=== PATIENT | male | born 1965 | race Caucasian/White ===

== ENCOUNTER → 2019-02-09 | Outpatient (CLI) | payer OTHER, SELFPAY ==
[2019-02-03 15:06] VITALS: BMI 30.9
[2019-02-09 16:59] LABS: ALB/GLOB Ratio 1.1 RATIO (0.9-2.4); AST(SGOT) 23 U/L (15-37); Alanine Aminotransfer ALT/SGPT 29 U/L (16-61); Albumin, Serum 3.8 g/dL (3.2-5.0); Alkaline Phosphatase 100 U/L (45-117); Anion Gap 5 (5-15); BUN 15 mg/dL (7-18); BUN/Creat Ratio 14.7 RATIO (10-20); Calcium,Total 8.5 mg/dL (8.5-10.1); Chloride 104 mmol/L (98-107); Cholesterol 230 mg/dL (200); Creatinine, Serum 1.02 mg/dL (0.70-1.30); EST Glomerular Filtration Rate 82 mL/min (>60); Est Glom Filt Rate - Afr Amer 99 mL/min (>60); Globulin 3.5 g/dL (2.2-4.2); Glucose 88 mg/dL (74-106); High Density Lipoprotein 51 mg/dL; Potassium 3.8 mmol/L (3.5-5.1); Protein, Total 7.3 g/dL (6.4-8.2); Sodium Level 139 mmol/L (136-145); Triglycerides 178 mg/dL; Very Low Density Lipoprotein 36 mg/dL (5-40)
== END | disposition home or self-care (01) ==
LOC: LAB 15:53
PROVIDERS: Family Provider Family Medicine; PCP Family Medicine; Referring Provider Family Medicine; Visit Provider Family Medicine
DX: E78.5 Hyperlipidemia, unspecified (principal)
CPT/HCPCS: 36415; 80053; 80061

== ENCOUNTER → 2020-05-31 15:13 | Outpatient (CLI) | payer OTHER, SELFPAY ==
[2020-05-30 15:47] VITALS: BMI 31.2
[2020-05-31 18:31] LABS: ALB/GLOB Ratio 1.1 RATIO (0.9-2.4); AST(SGOT) 23 U/L (15-37); Alanine Aminotransfer ALT/SGPT 30 U/L (16-61); Albumin, Serum 4.1 g/dL (3.2-5.0); Alkaline Phosphatase 80 U/L (45-117); Anion Gap 6 (5-15); BUN 11 mg/dL (7-18); BUN/Creat Ratio 9.8 RATIO (10-20); Calcium,Total 8.8 mg/dL (8.5-10.1); Chloride 102 mmol/L (98-107); Cholesterol 250 mg/dL (200); Creatinine, Serum 1.12 mg/dL (0.70-1.30); EST Glomerular Filtration Rate 73 mL/min (>60); Est Glom Filt Rate - Afr Amer 88 mL/min (>60); Globulin 3.6 g/dL (2.2-4.2); Glucose 69 mg/dL (74-106); High Density Lipoprotein 56 mg/dL; Potassium 3.8 mmol/L (3.5-5.1); Protein, Total 7.7 g/dL (6.4-8.2); Sodium Level 136 mmol/L (136-145); Triglycerides 96 mg/dL; Very Low Density Lipoprotein 19 mg/dL (5-40)
== END ==
PROVIDERS: PCP Family Medicine; Visit Provider Family Medicine
DX: R42 Dizziness and giddiness (principal)
CPT/HCPCS: 36415; 80053; 80061

== ENCOUNTER → 2020-06-14 17:42 | Outpatient (CLI) | payer OTHER, SELFPAY ==
[2020-05-30 15:47] VITALS: BMI 31.2
--- NOTE | 2020-06-14 17:48 | MRI_ITS ---
STUDY: MRI BRAIN WITH AND WITHOUT CONTRAST REASON FOR EXAM: Male, 54 years old. INTERMITTENT vertigo WITH VOMITTING TECHNIQUE: Standardized multiplanar fat and water weighted pulse sequences were obtained. IV 19 cc dotarem was administered for the contrast portion of the examination. COMPARISON: None. FINDINGS: Normal size of the ventricles and extra-axial spaces for the patient''s age. Minor periventricular white matter ischemic change without mass effect or restricted diffusion.. Normal bilateral basal ganglia. Normal thalami. There is no extra-axial fluid accumulation. Normal flow voids within the major intracranial circulation suggesting patency by spin echo criteria. Normal venous enhancement. There is no enhancing intra-axial or extra-axial abnormality. Normal sella turcica, pituitary gland, infundibular stalk, optic chiasm and hypothalamus. Normal tectal plate and pineal gland. Normal midbrain, faith and medulla. Normal cerebellum. Normal basal cisterns. Normal bilateral temporal bones. Normal bilateral internal auditory canals. No demonstrated orbital abnormality, within the constraints of a routine brain study. Normal visualized paranasal sinuses. Normal calvarium and skull base. Normal visualized soft tissue structures. Normal visualized upper cervical spine. MRI/Brain W/WO Contrast IMPRESSION: Minor periventricular white matter ischemic change without evidence for acute infarct. No enhancing lesions. No evidence for acoustic or vestibular schwannoma Electronically Signed: Gaston Nicholson MD at 19:32 EST , Service support ,
== END ==
PROVIDERS: PCP Family Medicine; Referring Provider Family Medicine; Visit Provider Family Medicine
DX: R42 Dizziness and giddiness (principal)
CPT/HCPCS: 70553; A9575

== ENCOUNTER → 2020-09-06 09:26 | Outpatient (CLI) | payer OTHER, SELFPAY ==
[2020-05-30 15:47] VITALS: BMI 31.2
[2020-09-06 12:42] LABS: Cholesterol 232 mg/dL (200); High Density Lipoprotein 55 mg/dL; Triglycerides 95 mg/dL; Very Low Density Lipoprotein 19 mg/dL (5-40)
== END ==
PROVIDERS: PCP Family Medicine; Referring Provider Family Medicine; Visit Provider Family Medicine
DX: E78.5 Hyperlipidemia, unspecified (principal)
CPT/HCPCS: 36415; 80061

== ENCOUNTER 2020-10-31 15:51 | Outpatient (RCR) | payer OTHER, SELFPAY ==
[2020-10-25 08:07] VITALS: BMI 30.4
--- NOTE | 2020-11-15 09:40 | HP.PTEVAL_ITS ---
Patient's Visit Information SHIVANI AIKEN is a 55 year old M referred to Physical Therapy by SEAN Vera with a diagnosis of R shoulder pain. Date of Evaluation: 10/31/20 Physical Therapist: Ricky Coreas DPT - Visit Plan Frequency: 1x/Week Duration: 6 Weeks Plan: Start with shoulder ROM (pass through stretching), progress RTC strengthening and periscapular strengthening in multiple planes as tolerated. Pt. to trial exercises on own at this point in time and follow up with PT in 2-3 weeks if needed. - Subjective Pt. is here today for his initial evaluation with diagnosis of R shoulder pain. Pt. reports having some mild issues for ~5 years, but has become worse recently. He reports difficulty sleeping and increased popping in his shoulder when raising it above 90deg. Along with this popping and reaching over head is painful. 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 Pt. also would like to be able to throw with his kids as they like playing baseball and football. He reports having a lot of pain and substitution patterns with any throwing. He tries to avoid throwing due to pain. He would like to reduce symptoms in order to throw, lift over head and get back to all recreational activities without limitations. He denies any neck pain and no radiating pain going down his arm. - Pain R shoulder Pain Intensity (Out of 10): 1 Pain Intensity Range: 0, 6 - Objective POSTURE: Pt. has slight FH posture, with slight rounded shoulders bilaterally, but able to correct with VC/TCing. Pt. is fairly muscular as well. PALPATION: Pt. has increased pain with palpation of anterior aspect of sub acromial space and along long bicipital groove. No pain in neck or scapular musculature. NEURO: Normal sensation and normal DTR of B biceps and triceps tendons. ROM: L shoulder- full without increase in pain with over pressure in all directions. R shoulder: Pt. has full motion of R shoulder, but has increased pain at ~140deg of flexion and abduction. Minimal pain with functional ER/IR motions. MMT: Pt. has decent strength throughout R deltoid (5/5). R RTC: ER 4+/5 mild increase NW, IR 5/5 NE. Periscapular musculature: rhomboid 4/5, mid trap 4+/5, lower trap 4+/5. SPECIAL TESTING: horn blowers +, biceps load -. - Special Tests R Shoulder Empty Can - SS: Negative R Shoulder Belly Press - SupScap: Negative R Shoulder Neer - Impingement: Positive R Shoulder Winters Joseluis - Impingement: Positive R Shoulder Biceps Load Test - Labrum: Negative R Shoulder Speeds Test - Labrum/Biceps: Negative - Goals Goal 1:: LTG: Pt. to be I with HEP. Goal Time Frame: 4-6 Weeks Goal 2:: STG: Pt. to sleep throughout the night without increase in symptoms. Goal Time Frame: 2-4 Weeks Goal 3:: LTG: Pt. to have full ROM of R shoulder without increase in symptoms. Goal Time Frame: 4-6 Weeks Goal 4:: LTG: Pt. tp have increased R shoulder and periscapular muscle strength to 5/5 throughout. Goal Time Frame: 4-6 Weeks Goal 5:: LTG: Pt. to be able to throw baseball/football without increase in symptoms. Goal Time Frame: 4-6 Weeks - Rehabilitation Potential Physical Therapy Diagnosis: Pt. has signs and symptoms consistent with R shoulder pain. He did have signs suggesting both supraspinatus and biceps involvement. I would recommend that he work on RTC strengthening, periscapular strengthening and stretching overhead. Pt. would benefit from PT to be educated in these movements progressing to I HEP. Rehabilitation Potential: Excellent - Anticipated Interventions Patient/Client Instruction: Educate patient on: Condition, Plan of Care, Risk Factors, Benefits of Fitness Program For the Purpose of:: To facilitate caregiver knowledge, To improve self management, To prevent re-injury, To improve ability to perform tasks related to life management, To improve tolerance to ADL's Therapeutic Exercise to Include: Strength training, Power training, Body mechan ics, Postural training, Flexibilty training, Passive ROM, Active ROM, Svitlana Exercises, Scapular Strength/Stabilization For the Purpose of:: To decrease pain, To increase ROM, To improve nutrient delivery to tissue, To increase oxygenation perfusion, To improve health of tissue, To decrease soft tissue restriction, To increase flexibility/ROM Thank you for the opportunity to evaluate your patient. For Medicare and Medicare HMO plans, please review the plan of care and approve it. It will need to be FAXED BACK to us at [phone] for Medicare purposes. For Medicare only, by signing this I certify the plan of care. Please let me know if there are questions or concerns regarding this plan of care. Physician Signature: Date:
--- NOTE | 2021-05-01 12:39 | HP.PT.NRP ---
SHIVANI Cosme NELLI was seen in my office for initial evaluation on 10/31/20. The following Plan of Care was established for this patient: Initial Frequency: 1x/Week Initial Duration: 6 Weeks Patient/Client Instruction: Educate patient on: Condition, Plan of Care, Risk Factors, Benefits of Fitness Program For the Purpose of:: To facilitate caregiver knowledge, To improve self management, To prevent re-injury, To improve ability to perform tasks related to life management, To improve tolerance to ADL's Therapeutic Exercise to Include: Strength training, Power training, Body mechanics, Postural training, Flexibilty training, Passive ROM, Active ROM, Svitlana Exercises, Scapular Strength/Stabilization For the Purpose of:: To decrease pain, To increase ROM, To improve nutrient delivery to tissue, To increase oxygenation perfusion, To improve health of tissue, To decrease soft tissue restriction, To increase flexibility/ROM This patient was last seen in our office 10/31/20. Pertinent comments regarding their Physical therapy will appear below: Pt. was seen in PT for his R shoulder pain. Pt. was given exercises at the evaluation and was to work on these exercises and follow up with PT if needed. He has not been seen in ~6 months and will be DC from PT at this point in time. At this point I will be discontinuing this patient from physical therapy. I would be happy to see this patient again in the future if found appropriate by the physician. Thank you! Ricky Coreas, DPT Balance/Gait/Functional tests - Balance/Special Test Scores Quick DASH Score: 25.0000
== END 2020-10-31 19:00 | disposition home or self-care (01) ==
LOC: PT 15:51
PROVIDERS: PCP Family Medicine; Referring Provider Nurse Practitioner Family; Visit Provider Nurse Practitioner Family
DX: M25.511 Pain in right shoulder (principal); G89.29 Other chronic pain
CPT/HCPCS: 97161

== ENCOUNTER 2021-05-26 08:20 | Outpatient (CLI) | payer OTHER, SELFPAY ==
[2021-05-26 09:19] LABS: Creatinine, Serum 1.01 mg/dL (0.70-1.30); EST Glomerular Filtration Rate 82 mL/min (>60); Est Glom Filt Rate - Afr Amer 99 mL/min (>60)
== END 2021-05-26 23:59 | disposition short-term general hospital (02) ==
LOC: LAB 08:22
PROVIDERS: PCP Family Medicine; Referring Provider Otolaryngology; Visit Provider Otolaryngology
DX: H90.42 Sensorineural hearing loss, unilateral, left ear, with unrestricted hearing on the contralateral side (principal)
CPT/HCPCS: 36415; 82565

== ENCOUNTER 2021-05-30 17:03 | Outpatient (CLI) | payer OTHER, SELFPAY ==
--- NOTE | 2021-05-30 17:04 | MRI_ITS ---
STUDY: MRI BRAIN WITH AND WITHOUT CONTRAST (ATTENTION INTERNAL AUDITORY CANALS - I.A.C.''s) REASON FOR EXAM: Male, 55 years old. LEFT HEARING LOSS TECHNIQUE: Standardized multiplanar fat and water weighted pulse sequences were obtained. IV 19mL Dotarem was administered for the contrast portion of the examination. COMPARISON: 06/14/2020 brain MR FINDINGS: Normal bilateral temporal bones. Normal bilateral internal auditory canals. There is no demonstrated intracanalicular or cisternal vestibular schwannoma (acoustic neuroma). There is no enhancement of the bilateral VIIth or VIIIth cranial nerves. Normal bilateral cochlea, vestibules and semicircular canals. Normal size of the ventricles and extra-axial spaces for the patient''s age. Normal white matter tracts of the supratentorial brain. There is no evidence for recent intracranial ischemia or other cause of cytotoxic edema on diffusion weighted imaging (DWI). There are no white matter hyperintensities. Specifically, there are no focal areas of white matter gliosis which are occasionally associated with vasospastic migraine headaches. Normal bilateral basal ganglia. Normal thalami. Normal flow voids within the major intracranial circulation suggesting patency by spin echo criteria. Normal venous enhancement. There is no enhancing intra-axial or extra-axial abnormality. There is no extra-axial fluid accumulation. Normal sella turcica, pituitary gland, infundibular stalk, optic chiasm and hypothalamus. Normal tectal plate and pineal gland. Normal midbrain, faith and medulla. Normal cerebellum. Normal basal cisterns. No demonstrated orbital abnormality, within the constraints of a routine brain study. Normal visualized paranasal sinuses. Normal calvarium and skull base. Normal visualized soft tissue structures. Normal visualized upper cervical spine. MRI/Brain W/WO Contrast IMPRESSION: Normal unenhanced and enhanced MRI of the bilateral internal auditory canals (I.A.C''s). No IAC mass. No finding to explain left-sided hearing loss, tinnitus, or dizziness. Electronically Signed: Denzel Biggs MD at 2:47 EST Tel , Service support ,
== END 2021-05-30 23:59 | disposition short-term general hospital (02) ==
PROVIDERS: PCP Family Medicine; Visit Provider Otolaryngology
DX: H90.42 Sensorineural hearing loss, unilateral, left ear, with unrestricted hearing on the contralateral side (principal)
CPT/HCPCS: 70553; A9575

== ENCOUNTER 2021-06-02 08:21 | Outpatient (CLI) | payer OTHER, SELFPAY ==
[2021-06-02 09:17] LABS: AST(SGOT) 17 U/L (15-37); Alanine Aminotransfer ALT/SGPT 29 U/L (16-61); Albumin, Serum 3.8 g/dL (3.2-5.0); Alkaline Phosphatase 80 U/L (45-117); Anion Gap 6 (5-15); BUN 16 mg/dL (7-18); BUN/Creat Ratio 13.7 RATIO (10-20); Chloride 99 mmol/L (98-107); Creatinine, Serum 1.17 mg/dL (0.70-1.30); EST Glomerular Filtration Rate 69 mL/min (>60); Est Glom Filt Rate - Afr Amer 84 mL/min (>60); Globulin 3.8 g/dL (2.2-4.2); Glucose 99 mg/dL (74-106); Potassium 4.7 mmol/L (3.5-5.1); Protein, Total 7.6 g/dL (6.4-8.2); Sodium Level 137 mmol/L (136-145)
== END 2021-06-02 23:59 | disposition short-term general hospital (02) ==
LOC: LAB 08:22
PROVIDERS: PCP Family Medicine; Visit Provider Family Medicine
DX: I10 Essential (primary) hypertension (principal)
CPT/HCPCS: 36415; 80053

== ENCOUNTER 2021-06-12 08:15 | Outpatient (CLI) | payer OTHER, SELFPAY | END 2021-06-12 23:59 | disposition short-term general hospital (02) | LOC: LABSPEC 08:16 | PROVIDERS: PCP Family Medicine; Visit Provider Physician Assistant Surgical | DX: Z20.822 Contact with and (suspected) exposure to COVID-19 (principal) | CPT/HCPCS: 87635; U0003; U0005 ==

== ENCOUNTER → 2021-12-26 | Outpatient (CLI) | payer OTHER, SELFPAY | END | disposition home or self-care (01) | LOC: LABSPEC 15:24 | PROVIDERS: PCP Family Medicine; Referring Provider Nurse Practitioner Family; Visit Provider Nurse Practitioner Family | DX: R05.9 Cough, unspecified (principal) | CPT/HCPCS: 87635; U0003; U0005 ==

== ENCOUNTER → 2023-02-25 | Outpatient (CLI) | payer OTHER, SELFPAY ==
[2023-02-25 15:54] LABS: Bacteria 0 SEEN /hpf (None Seen); Mucous, Urine 0 SEEN /hpf (<or=2+); Red Blood Cells-Urine 0 SEEN /hpf (0-5); White Blood Cells 0 SEEN /hpf (0-5)
[2023-02-25 16:34] LABS: Absolute Lymphocyte Count 2.43 X10^3/uL (0.83-4.51); Absolute Neutrophil Count 4.4 X10^3/uL (2.0-7.7); Basophil# 0.06 X10^3/uL; Basophil% 0.8 % (0-1); Eosinophil# 0.12 X10^3/uL; Eosinophils% 1.5 % (0-5); Hematocrit 44.9 % (40-54); Hemoglobin 15.4 g/dL (13.0-16.5); Lymphocyte # 2.43 X10^3/ul (0.83-4.51); Lymphocyte % 31.2 % (19-41); Mean Corp Hgb Conc 34.3 g/dL (32-36); Mean Corpuscular Hgb 31.6 pg (27.0-32.0); Mean Corpuscular Volume 92.2 fL (80-94); Mean Platelet Vol. 10.3 fl (6.2-12.0); Monocyte# 0.77 X10^3/uL; Monocyte% 9.9 % (0-10); NRBC Flagged by Analyzer 0 % (0-5); Neutrophil % 56.3 % (47-70); Platelet Count 297 K/mm3 (150-450); RBC Distribution Width CV 11.8 % (11.6-14.6); Red Blood Count 4.87 M/mm3 (4.6-6.2); White Blood Count 7.8 K/mm3 (4.4-11.0)
[2023-02-25 16:46] LABS: Color, Urine Yellow (Yellow); Glucose, Dipstick Normal (Normal); Ketone-Dipstick 5 mg/dl (Negative); Leukocyte Esterase-Dipstick Negative /ul (Negative); Nitrite-Dipstick Negative (Negative); Occult Blood-Urine Negative /ul (Negative); Protein-Dipstick Negative (Negative); Urine Bilirubin Dipstick Negative (Negative); Urine Clarity Sl. Cloudy (Clear); Urine Urobilinogen Normal (Normal)
[2023-02-25 16:57] LABS: Amorphous Sediment 2+; Squamous Epithelial Cells - UA 0-5 SEEN /hpf (0-5)
[2023-02-25 17:15] LABS: ALB/GLOB Ratio 1.2 RATIO (0.9-2.4); AST(SGOT) 16 U/L (15-37); Alanine Aminotransfer ALT/SGPT 24 U/L (16-61); Albumin, Serum 4.1 g/dL (3.2-5.0); Alkaline Phosphatase 74 U/L (45-117); Anion Gap 4 (5-15); BUN 17 mg/dL (7-18); BUN/Creat Ratio 16.5 RATIO (10-20); Chloride 102 mmol/L (98-107); Cholesterol 273 mg/dL (200); Creatinine, Serum 1.03 mg/dL (0.70-1.30); EST Glomerular Filtration Rate 80 mL/min (>60); Est Glom Filt Rate - Afr Amer 96 mL/min (>60); Globulin 3.5 g/dL (2.2-4.2); Glucose 73 mg/dL (74-106); High Density Lipoprotein 58 mg/dL; PSA,Total- Diagnostic 0.91 ng/mL (0.0-4.0); Potassium 3.8 mmol/L (3.5-5.1); Protein, Total 7.6 g/dL (6.4-8.2); Sodium Level 136 mmol/L (136-145); Thyroid Stim Hormone (TSH) 1.49 uIU/mL (0.358-3.74); Triglycerides 122 mg/dL; Very Low Density Lipoprotein 24 mg/dL (5-40)
== END | disposition home or self-care (01) ==
LOC: BIMLAB 15:53
PROVIDERS: PCP Family Medicine; Visit Provider Family Medicine
DX: Z00.00 Encounter for general adult medical examination without abnormal findings (principal); I10 Essential (primary) hypertension; R35.0 Frequency of micturition
CPT/HCPCS: 36415; 80053; 80061; 81001; 82533; 84153; 84403; 84443; 85025

== ENCOUNTER → 2024-04-19 | Outpatient (CLI) | payer OTHER, SELFPAY ==
[2024-04-19 12:53] LABS: Mucous, Urine 0 SEEN /hpf (<or=2+)
[2024-04-19 13:03] LABS: Color, Urine Yellow (Yellow); Glucose, Dipstick Normal (Normal); Ketone-Dipstick Negative (Negative); Leukocyte Esterase-Dipstick Negative /ul (Negative); Nitrite-Dipstick Negative (Negative); Occult Blood-Urine 150 /ul (Negative); Protein-Dipstick Negative (Negative); Urine Bilirubin Dipstick Negative (Negative); Urine Clarity Clear (Clear); Urine Urobilinogen Normal (Normal); Urine pH 6.5 (5.0 - 8.0)
[2024-04-19 13:17] LABS: Bacteria 1+ /hpf (None Seen); Red Blood Cells-Urine 5-10 SEEN /hpf (0-5); Squamous Epithelial Cells - UA 0-5 SEEN /hpf (0-5); White Blood Cells 0-5 SEEN /hpf (0-5)
== END | disposition home or self-care (01) ==
LOC: LABSPEC 12:21
PROVIDERS: PCP Family Medicine; Referring Provider Physician Assistant; Visit Provider Physician Assistant
DX: R31.9 Hematuria, unspecified (principal); R35.0 Frequency of micturition
CPT/HCPCS: 81001; 87086

== ENCOUNTER → 2024-05-10 | Outpatient (CLI) | payer OTHER, SELFPAY ==
[2024-05-10 13:13] LABS: Bacteria 0 SEEN /hpf (None Seen); Red Blood Cells-Urine 0 SEEN /hpf (0-5); White Blood Cells 0 SEEN /hpf (0-5)
[2024-05-10 15:21] LABS: Color, Urine Yellow (Yellow); Glucose, Dipstick Normal (Normal); Ketone-Dipstick Negative (Negative); Leukocyte Esterase-Dipstick Negative /ul (Negative); Nitrite-Dipstick Negative (Negative); Occult Blood-Urine Negative /ul (Negative); Protein-Dipstick Negative (Negative); Specific Gravity, Urine 1.025 (1.002-1.030); Urine Bilirubin Dipstick Negative (Negative); Urine Clarity Clear (Clear); Urine Urobilinogen Normal (Normal)
[2024-05-10 15:36] LABS: Mucous, Urine RARE /hpf (<or=2+); Squamous Epithelial Cells - UA 0-5 SEEN /hpf (0-5)
== END | disposition home or self-care (01) ==
LOC: LABSPEC 13:12
PROVIDERS: PCP Family Medicine; Visit Provider Family Medicine
DX: R31.9 Hematuria, unspecified (principal)
CPT/HCPCS: 81001

== ENCOUNTER → 2024-09-22 | Outpatient (CLI) | payer OTHER, SELFPAY ==
[2024-09-22 17:20] LABS: ALB/GLOB Ratio 1.4 RATIO (0.9-2.4); AST(SGOT) 25 U/L (<=37); Alanine Aminotransfer ALT/SGPT 17 U/L (<=46); Albumin, Serum 4.3 g/dL (3.5-5.0); Alkaline Phosphatase 93 U/L (40-129); Anion Gap 12 (5-15); BUN 18 mg/dL (4-19); BUN/Creat Ratio 18.5 RATIO (10-20); Calcium,Total 9.4 mg/dL (7.6-11.0); Carbon Dioxide 23.6 mmol/L (21.0-32.0); Chloride 100 mmol/L (98-108); Cholesterol 269 mg/dL (<=200); Creatinine, Serum 0.99 mg/dL (0.70-1.20); EST Glomerular Filtration Rate 89 (>60); Glucose 125 mg/dL (70-99); High Density Lipoprotein 50 mg/dL; Low Density Lipoprotein Calc. 178 mg/dL; PSA,Total - Annual Screen 0.72 ng/mL (0.02-4.00); Potassium 4.5 mmol/L (3.3-5.1); Protein, Total 7.3 g/dL (5.9-8.4); Sodium Level 136 mmol/L (133-145); Total Bilirubin 0.37 mg/dL (0.00-1.30); Triglycerides 205 mg/dL; Very Low Density Lipoprotein 41 mg/dL (5-40); cholesterol:hdl ratio screen 5.34
== END | disposition home or self-care (01) ==
LOC: BIMLAB 15:01
PROVIDERS: PCP Family Medicine; Referring Provider Family Medicine; Visit Provider Family Medicine
DX: Z00.00 Encounter for general adult medical examination without abnormal findings (principal)
CPT/HCPCS: 36415; 80053; 80061; 84153; G0103

== ENCOUNTER → 2025-01-27 | Outpatient (CLI) | payer OTHER, SELFPAY ==
--- NOTE | 2025-01-27 06:51 | MRI_ITS ---
PROCEDURE: LOWER EXT JOINT ONLY (ROUTINE) 01/27/2025 REASON FOR EXAM: KNEE PAIN TECHNIQUE: Procedure Code: MRILEJ Modality: MR Procedure: LOWER EXT JOINT ONLY (ROUTINE) Multiplanar and multisequence images were obtained. COMPARISON: None FINDINGS: Menisci: There is a tear of the posterior horn of the medial meniscus extending to the root attachment. There is no truncation. There is no extension into the anterior horn. The lateral meniscus has a normal signal without tear. Cruciate Ligaments: The anterior and posterior cruciate ligaments are intact. Extensor Mechanism: Normal quadriceps and patellar tendons. Normal patellar tracking. Collateral Ligaments: Mild sprain of the medial collateral ligament. No full- thickness tear. Bone Marrow: Mild edema in the medial tibial plateau related to loss of cartilage and osteoarthritic changes of the medial compartment. Effusion: Moderate joint effusion with thickened medial plica. No loose body. Articular Cartilage: Chondromalacia involving the medial femoral condylar cartilage centrally. No chondromalacia patella. MRI/Lower Ext Joint Only (Routine) IMPRESSION: Mild degenerative changes of the medial compartment of the knee. Moderate-sized suprapatellar joint effusion without loose body. Complex tear of the posterior horn of the medial meniscus extending to the root attachment. Mild sprain of the medial collateral ligament Reading Location: [id number]
--- OUTSIDE RECORDS SUMMARY | 2025-01-27 07:22 | XMS RPT_ITS | CCD ---
Author Organization [facility] ion [facility] Care Team Providers Care Mitten Stitcher Name Role Phone JOSE RASMUSSEN Unavailable Unavailable PHYSICIAN, NOT RECORDED Unavailable Unavaila JOSE Anthony Unavailable Unavailable Dr. Terri Owens Primary Care Provider [phone] Dr. Terri Owens Referring Provider [phone] UNIQUE Leonard Attending Provider [phone] Dr. Kiran Farr Attending Provider Talita [employer]NESS INSTRUCTOR, FITNESS AND WELLNESS INSTRUCTORFortinoC Jose Miguel Attending Provider [phone] PHYSICIAN, NOT RECORDED Primary Care Physician U rafael Escobar PT, Alicia Unavailable Unavailable PHYSICIAN, NOT RECORDED Primary Care Unavaila DR LANE Riddle MD Referring Unavail marilyn COREAS MD, DR LANE Cosme Attending Unavail able Dr. Terri Owens DO Primary Care Provider [phone] Dr. Terri Owens DO Attending Provider [phone] Dr. Terri Owens DO Referring Provider [phone] Handy Leonard Attending Provider Dr. Kiran Farr MD Attending Provider [phone] JOSS MORALES, DR LANE Cosme Attending Unavail able TERRI OWENS DO Primary Care Unavailable TERRI OWENS DO Primary Care Unavailable RAPHAEL LEONARD Attending Unavailable Terri Owens Primary Care Unavailable Kiran Farr Attending Unavailable Terri Owens Referring Unavailable Terri Owens Primary Care Unavailable Earnest Mcclure Attending Unavailable Terri Owens Primary Care Unavailable Earnest Mcclure Attending Unavailable Brown, Terri R Referring Unavailable Brown, Terri R Primary Care Unavailable Brown, Terri R Attending Unavailable Brown, Terri R Referring Unavailable Brown, Terri R Primary Care Unavailable Brown, Terri R Attending Unavailable Brown, Terri R Primary Care Unavailable Handy Leonard Attending Unavailable Handy Leonard Referring Unavailable Brown, Terri R Primary Care Unavailable Rad Lay Attending Unavailable Brown, Terri R Primary Care Unavailable Brown, Terri R Attending Unavailable Brown, Terri R Referring Unavailable Earnest Mcclure Referring Unavailable Brown, Terri R Primary Care Unavailable Earnest Mcclure Attending Unavailable Brown, Terri R Primary Care Unavailable Brown, Terri R Attending Unavailable Brown, Terri R Referring Unavailable Brown, Terri R Primary Care Unavailable Handy Leonard Attending Unavailable Brown, Terri R Referring Unavailable Medications Current Medications Medication Drug Class(es) Dates Sig (Normalized) Sig (Original) cholecalciferol 0.01 mg oral capsule (7 sources) Vitamin D Start: 09-21-2024 take 1 capsule by mouth once daily Cholecalciferol (Vitamin D3) 10 mcg (400 unit) capsule Active 10 ug PO daily September 21, 2024 12:00am Start: 02-10-2020 End: 11-09-2021 take 1 capsule by mouth once daily Cholecalciferol (Vitamin D3) 25 mcg (1,000 unit) capsule Discontinued 25 ug PO DAILY February 10, 2020 12:00am November 09, 2021 1:12pm mecobalamin (3 sources) Start: 09-21-2024 Mecobalamin (Vitamin B12) 500 mcg tablet,chewable Active ug PO September 21, 2024 12:00am meloxicam 15 mg oral tablet (6 sources) Nonsteroidal Anti-inflammatory Drug Start: 12-22-2024 take 1 tablet by mouth once daily Meloxicam 15 mg tablet Active 15 mg PO daily 30 0 December 22, 2024 12:00am Start: 10-25-2020 End: 05-29-2021 take 1 tablet by mouth once daily as needed for pain Meloxicam (Mobic) 15 mg tablet Discontinued 15 mg PO DAILY as needed for pain 30 October 25, 2020 12:00am May 29, 2021 4:35pm Completed/Discontinued Medications Medication Drug Class(es) Dates Sig (Normalized) Sig (Original) amoxicillin 500 mg oral capsule (6 sources) Penicillin-class Antibacterial Start: 06-16-2023 End: 06-26-2023 take 1 capsule by mouth three times daily Amoxicillin 500 mg capsule Discontinued 500 mg PO THREE TIMES A DAY 30 10 0 June 16, 2023 1:00am June 25, 2023 1:00am June 26, 2023 1:03am Start: 07-22-2022 End: 08-01-2022 take 1 capsule by mouth three times daily Amoxicillin 500 mg capsule Discontinued 500 mg PO THREE TIMES A DAY 30 10 0 July 22, 2022 1:00am July 31, 2022 12:00am August 01, 2022 12:04am amoxicillin 875 mg / clavulanate 125 mg oral tablet (11 sources) Penicillin-class Antibacterial Start: 02-12-2023 End: 02-22-2023 Amoxicillin-Pot Clavulanate 875-125 mg tablet Discontinued 1 {tbl} PO Q12H 20 10 0 February 12, 2023 12:00am February 21, 2023 12:00am February 22, 2023 12:32am Acute sinusitis, unspecified Start: 12-26-2021 End: 04-23-2022 Amoxicillin-Pot Clavulanate 875-125 mg tablet Discontinued 1 {tbl} PO TWICE A DAY 14 December 26, 2021 12:00am April 23, 2022 2:45pm Start: 12-26-2021 take 1 tablet by thaddeus th twice daily Amoxicillin-Pot Clavulanate Active 1 TABLET PO TWICE A DAY 14 December 26, 2021 12:00am Start: 03-23-2021 End: 04-02-2021 Amoxicillin-Pot Clavulanate (Augmentin) 875-125 mg tablet Discontinued 1 {tbl} PO Q12H 20 10 0 March 23, 2021 12:00am April 01, 2021 1:00am April 02, 2021 1:01am Acute sinusitis, unspecified ascorbic acid 500 mg oral capsule (4 sources) Vitamin C Start: 02-10-2020 End: 11-09-2021 Ascorbic Acid (Vitamin C) 50 0 mg capsule Discontinued mg PO February 10, 2020 12:00am November 09, 2021 1:12pm Start: 02-10-2020 End: 11-09-2021 Ascorbic Acid (Vitamin C) Di scontinued MG PO February 10, 2020 12:00am November 09, 2021 1:12pm azithromycin 250 mg oral tablet (3 sources) Macrolide Antimicrobial Start: 05-13-2022 End: 07-22-2022 take 2-5 tablets by mouth once daily Azithromycin 250 mg tablet Discontinued 0 PO .COMPLEX 6 0 May 13, 2022 1:00am July 22, 2022 10:53am take 500 mg today (day 1), then 250 mg for 4 days (days 2-5) PO ciprofloxacin 500 mg oral tablet (3 sources) Quinolone Antimicrobial Start: 04-19-2024 End: 05-05-2024 take 1 tablet by mouth twice daily Ciprofloxacin Hcl 500 mg tablet Discontinued 500 mg PO TWICE A DAY 10 April 19, 2024 1:00am May 05, 2024 5:05pm cyclobenzaprine hydrochloride 10 mg oral tablet (4 sources) Muscle Relaxant Start: 05-27-2018 End: 02-03-2019 take 1 tablet by mouth three times daily as needed for pain Cyclobenzaprine 10 mg tablet Discontinued 10 mg PO THREE TIMES A DAY 20 May 27, 2018 1:00am February 03, 2019 3:03pm As needed for back pain [id number] 0.3 ml EPINEPHrine 1 mg/ml auto-injector (4 sources) alpha-Adrenergic Agonist, beta-Adrenergic Agonist, Catecholamine Start: 11-23-2019 End: 07-22-2022 Epinephrine (Epipen 2-Gurjit) 0.3 mg/0.3 mL auto-injector Discontinued 0.3 mg IM ONCE 1 2 November 23, 2019 12:00am July 22, 2022 11:04am as a single dose ibuprofen 200 mg oral tablet (4 sources) Nonsteroidal Anti-inflammatory Drug Start: 05-27-2018 End: 02-03-2019 take 1 tablet by mouth three to four times daily as needed Ibuprofen 200 mg tablet Discontinued 200 mg PO 3 to 4 times per day as needed May 27, 2018 1:00am February 03, 2019 3:04pm lisinopril 20 mg oral tablet (20 sources) Angiotensin Converting Enzyme Inhibitor Start: 07-10-2021 End: 07-22-2022 take 1 tablet by mouth once daily Lisinopril 20 mg tablet Discontinued 20 mg PO DAILY 90 October 18, 2021 11:36am July 22, 2022 11:03am magnesium oxide 400 mg oral capsule (4 sources) Start: 05-29-2021 End: 07-22-2022 take 1 capsule by mouth once daily Magnesium Oxide 400 mg magnesium capsule Discontinued 400 mg PO DAILY May 29, 2021 1:00am July 22, 2022 11:03am meclizine hydrochloride 25 mg oral tablet (8 sources) Antiemetic Start: 05-30-2020 End: 10-25-2020 take 1 tablet by mouth once daily as needed for dizziness Meclizine 25 mg tablet Discontinued 25 mg PO DAILY as needed for dizziness 20 1 May 30, 2020 1:00am October 25, 2020 8:04am Start: 11-08-2019 End: 02-10-2020 take 1 tablet by mouth three times daily as needed for dizziness Meclizine 25 mg tablet Discontinued 25 mg PO THREE TIMES A DAY as needed for dizziness 60 November 08, 2019 12:00am February 10, 2020 3:43pm methylPREDNISolone 4 mg oral tablet (6 sources) Corticosteroid Start: 02-03-2023 End: 02-25-2023 take 1 tablet by mouth once Methylprednisolone (Medrol (Gurjit)) 4 mg tablets,dose pack Discontinued 0 PO per package directions February 03, 2023 12:00am February 25, 2023 3:08pm PO PER PKG DIR Start: 05-13-2022 End: 05-19-2022 take 1 tablet by mouth once Methylprednisolone (Medrol (Gurjit)) 4 mg tablets,dose pack Discontinued 4 mg PO per package directions 21 6 May 13, 2022 1:00am May 18, 2022 1:00am May 19, 2022 1:04am predniSONE 10 mg oral tablet (7 sources) Start: 03-17-2024 End: 05-05-2024 take 4 tablets by mouth once daily, then take 3 tablets by mouth once daily, then take 2 tablets by mouth once daily, then take 1 tablet by mouth once daily Prednisone 10 mg tablet Discontinued 10 mg PO DAILY March 17, 2024 12:00am May 05, 2024 5:05pm 4 tablets daily x3 days, then 3 tablets daily x3 days, then 2 tablets daily x3 days, then 1 tablet daily x3 days Start: 05-27-2018 End: 02-03-2019 Prednisone 10 mg tablets,dos e pack Discontinued 0 PO per package directions May 27, 2018 1:00am February 03, 2019 3:04pm PO PER PKG DIR Start: 05-27-2018 End: 02-03-2019 Prednisone Discontinued 0 PO per package directions May 27, 2018 1:00am February 03, 2019 3:04pm PO PER PKG DIR rosuvastatin calcium 10 mg oral tablet (10 sources) HMG-CoA Reductase Inhibitor Start: 03-05-2023 End: 05-05-2024 take 1 tablet by mouth once daily Rosuvastatin 10 mg tablet Discontinued 10 mg PO DAILY 90 May 23, 2023 5:44pm May 05, 2024 5:05pm Start: 06-07-2020 End: 10-25-2020 take 1 tablet by mouth once daily Rosuvastatin 10 mg tablet Discontinued 10 mg PO DAILY 90 June 07, 2020 1:00am October 25, 2020 8:04am Problems Active Problems Problem Classification Problem Date Documented Date Episodic/Chronic Acute bronchitis (3 sources) Acute bronchitis; Translations: [Acute bronchitis, unspecified] 05-13-2022 Episodic Conditions associated with dizziness or vertigo (4 sources) Benign paroxysmal positional vertigo; Translations: [Benign paroxysmal vertigo, unspecified ear] 02-10-2020 Episodic Diseases of mouth; excluding dental (5 sources) Oropharyngeal lesion; Translations: [Other lesions of oral mucosa] Episodic Essential hypertension (4 sources) Essential hypertension; Translations: [Essential (primary) hypertension] 05-29-2021 Chronic Headache; including migraine (4 sources) Migraine variants; Translations: [Other migraine, not intractable, without status migrainosus] 08-22-2021 Chronic Immunizations and screening for infectious disease (3 sources) Contact with and (suspected) exposure to other viral communicable diseases; Translations: [Contact with or suspected exposure to other viral communicable disease] 04-24-2022 Episodic Intestinal obstruction without hernia (4 sources) Strangulated omentum; Translations: [Volvulus] 05-27-2018 Episodic Osteoarthritis (6 sources) Arthropathy; Translations: [Primary osteoarthritis, unspecified shoulder] Chronic Other connective tissue disease (4 sources) Triggering of digit; Translations: [Trigger finger, right index finger] 10-25-2020 Episodic Other connective tissue disease (4 sources) Impingement syndrome of shoulder region; Translations: [Impingement syndrome of left shoulder] 11-09-2021 Episodic Other connective tissue disease (1 source) Impingement syndrome of left shoulder; Translations: [Other affections of shoulder region, not elsewhere classified] Episodic Other non-epithelial cancer of skin (4 sources) Malignant neoplasm of skin; Translations: [Unspecified malignant neoplasm of skin, unspecified] 10-25-2020 Episodic Comment on above: removed 09/06 Other non-traumatic joint disorders (1 source) Shoulder pain; Translations: [Pain in left shoulder] Episodic Other non-traumatic joint disorders (4 sources) Chronic pain of right upper limb; Translations: [Pain in right shoulder] 10-25-2020 Episodic Other non-traumatic joint disorders (4 sources) Pain in left shoulder; Translations: [Pain in joint, shoulder region] Episodic Other non-traumatic joint disorders (2 sources) Knee pain Episodic Other non-traumatic joint disorders (3 sources) Pain in left knee; Translations: [Left knee pain] Onset: 12-22-2024 12-22-2024 Episodic Other non-traumatic joint disorders (1 source) Other instability, left knee; Translations: [Other instability, left knee] Onset: 01-24-2025 Episodic Other skin disorders (3 sources) Lesion of skin of foot; Translations: [Disorder of the skin and subcutaneous tissue, unspecified] 05-06-2024 Episodic Other upper respiratory infections (10 sources) Acute upper respiratory infection, unspecified; Translations: [Acute upper respiratory infections of unspecified site] Episodic Otitis media and related conditions (4 sources) Otitis media; Translations: [Otitis media, unspecified, left ear] 03-23-2021 Episodic Pneumonia (except that caused by tuberculosis or sexually transmitted disease) (4 sources) Pneumonia; Translations: [Pneumonia, unspecified organism] 05-27-2018 Episodic Residual codes; unclassified (1 source) Pain, unspecified; Translations: [Generalized pain] Episodic Residual codes; unclassified (1 source) Past history of procedure; Translations: [Other specified postprocedural states] Episodic Spondylosis; intervertebral disc disorders; other back problems (4 sources) Back problem; Translations: [Dorsopathy, unspecified] 05-27-2018 Episodic Sprains and strains (4 sources) Low back strain; Translations: [Strain of muscle, fascia and tendon of lower back, initial encounter] 05-29-2021 Episodic Unclassified (1 source) None (qualifier value) 07-20-2018 Unclassified (4 sources) M25.562 - Pain in left knee Past or Other Problems Problem Classification Problem Date Documented Da te Episodic/Chronic Genitourinary symptoms and ill-defined conditions (8 sources) Blood in urine; Translations: [Hematuria, unspecified] Onset: 04-19-2024 04-19-2024 Episodic Other skin disorders (1 source) Disorder of the skin and subcutaneous tissue, unspecified; Translations: [Disorder of the skin and subcutaneous tissue, unspecified] Onset: 03-17-2024 Episodic Unclassified (4 sources) history surgery ganranous omentum 12-16-2021 Comment on above: 1997 Results Test Name Value Interpretation Reference Range Facility Internal Medicine Office Vis ito 12-22-2024 Internal Medicine Office Visit [facility] [address] [place] [address] [address] [place] [address] OFFICE VISIT Date of Service: 12/22/24 MR#: [id number] Acct: [id number] Name: SHIVANI AIKEN Rep #: [id number] : 1965 Provider: UNIQUE Ballard Age/Sex: 59/M Location: [facility] Status: Signed Intake Vital Signs 09/21/24 16:03 12/22/24 08:09 Height 5 ft 11 in 5 ft 11 in Weight: 229 lb 226 lb BMI 31.9 31.5 BP 122/84 H 120/82 H Blood Pressure Location Lt brachial Lt brachial Position Sitting Sitting Respiration 16 16 Pulse 74 73 Pulse Source Monitor Monitor Temp 97.8 F 98.5 F Temp Source Temporal Temporal Pulse Oximetry (%) 97 98 Oxygen Delivery Method room air room air Intake Visit Reasons: BURSA IN L KNEE Chief Complaint: BURSA IN LEFT KNEE Is patient in pain?: Yes (LEFT KNEE) Pain scale (1-10): 4 Allergies No Known Allergies Allergy (Verified 12/22/24 08:07) Medications ???Medication ???Instructions ???Recorded ???Confirmed ???Type cholecalciferol (vitamin D3) 10 10 mcg PO QDAY 09/21/24 12/22/24 H istory mcg (400 unit) capsule mecobalamin (vitamin B12) 500 mcg mcg PO 09/21/24 12/22/24 History chewable tablet meloxicam 15 mg tablet 15 mg PO QDAY #30 tabs 12/22/24 Rx Have you fallen in the past year?: No PFSH Medical History Screening for colorectal cancer Blood in urine Lesion of skin of foot Acute maxillary sinusitis, unspecified Lesion of palate Trigger finger, right index finger Chronic right shoulder pain Physical exam, annual history surgery ganranous omentum Strangulated omentum Pneumonia Back problem Surgical History S/P shoulder replacement History of carpal tunnel release of both wrists Family History Mother Glaucoma Father Alzheimer disease Social History adopted: No household members: spouse number of children: 2 current occupational status: employed current occupation: [employer] [place] pets and animals: Yes (1) pets and animals: dog(s) sexually active: Yes Smoking Status: Never smoker alcohol intake: current alcohol intake frequency: a few times a week Alcohol type: wine substance use type: does not use caffeine: No what type of physical activity do you participate in: other details: Varies frequency: 5-6 times per week do you feel safe at home: Yes HPI HPI Chief Complaint: BURSA IN LEFT KNEE Details: SHIVANI AIKEN, is a 59 M who presents to the office today for left knee pains. PAtient states that in October he started to have some pains in the right hamstring and so he was working on the right side working on stretching the hamstrings and the quadriceps and even doing a little bit of foam rolling. Patient states that about a month later which was then in November he started noticing some discomfort in the left knee. There was no injury or inciting incident that started this but gradually started to notice this pain. He states that then recently he was jumping off a diving board and grabbed his knees to do a cannonball and states that he felt pretty acute pain in that left knee. Pains have been pretty localized to the outside part of the knee. He states he maybe has noticed a little bit of swelling. He has done a little icing and is taken some anti-inflammatories but does not really like to do that. Patient states that he has felt like there is been some instability of the knee especially going downstairs or if he is on uneven surfaces. Patient denies having any locking of the knee. He did get a knee brace which he states has definitely given him some support and has improved his overall discomfort. He has been wearing this regularly with physical activity. ROS Const Constitutional: No body ache, chills, excessive sweating, fatigue, fever(s), frequent falls, headache(s), snoring, weakness, sleep problems or change in appetite Eyes Eyes: No blurry vision, change in vision or Light sensitivity ENT ENT: No abnormal hearing, ear or mastoid pain, tinnitus, nasal congestion, nasal discharge, headache(s), neck pain or sore throat Resp Respiratory: No cough, shortness of breath, snoring or wheezing Cardio Cardiology: No chest pain at rest, chest pain with exertion, excessive sweating, shortness of breath, dyspnea on exertion, lightheadedness, orthopnea or palpitations Gastro GI: No abdominal pain, change in bowel habits, constipation, cramping, diarrhea or nausea/dyspepsia Genitourinary Male: No burning urination, painful urination, urinary incontinence or urinary frequency Musc Musculoskeletal: Positive for joint pain (LEFT KNEE PAIN ACUTE X1 WEEK); No abnormal gait, back pain, limited ran (more content not included)... Normal [facility] Knee 4 or More Viewson 12-22 Knee 4 or More Views [facility] [address] [place] [address] Knee 4 or More Views MR#: [id number] Acct: [id number] Name: SHIVANI AIKEN Rep #: [id number] : 1965 M 59 From: Handy Tolliver MD PCP: Dr. Terri Owens, DO Status: DEP [facility] Study: Knee 4 or More Views Date of Exam: 12/22/24 Exam# [id number] Ordering Dr: Handy Mcghee PA ADDENDUM by Dr. Eliazar Almanza MD on 12/23/24 at 0450 . [facility] 045 Date cc: Dr. Terri Owens DO; UNIQUE Ballard * Signed PROCEDURE: KNEE 4 OR MORE VIEWS 12/22/2024 REASON FOR EXAM: PAIN X 1 MONTH, PAIN GOT WORSE AFTER DOING A MCCORMACK BALL TECHNIQUE: KNEE 4 OR MORE VIEWS COMPARISON: None. FINDINGS: No evidence of acute fracture or dislocation. Mild degenerative changes of the left knee. No knee joint effusion. RAD/Knee 4 or More Views IMPRESSION: Mild osteoarthrosis. No acute osseous abnormalities. Reading Location: [facility] CC: Dr. Terri Owens DO; UNIQUE Ballard Principal Database Developer: Signed Normal [facility] Anion gap in Serum or Plasma Ordered By: Terri Owens on 09-22-2024 Anion gap [Moles/Vol] 12 mmol/L 5-15 [facility] BUN/creatinine ratioOrdered By: Terri Owens on 09-22-2024 Urea nitrogen/Creatinine [Mass ratio] 18.5 mg/mg 10-20 [facility] Bilirubin, totalOrdered By: Terri Owens on 09-22-2024 Bilirubin [Mass/Vol] 0.37 mg/dL 0.00-1.30 [facility] Calculated very low density lipoprotein (VLDL) cholesterol measurementOrdered By: Terri Owens on 09-22-2024 Calculated very low density lipoprotein (VLDL) cholesterol measurement 41 mg/dL High 5-40 [facility] Carbon dioxide, total [Moles /volume] in Central venous bloodOrdered By: Terri Owens on 09-22-2024 CO2 [Moles/Vol] 23.6 mmol/L 21.0-32.0 [facility] Chloride assayOrdered By: Do lashae Owens on 09-22-2024 Chloride [Moles/Vol] 100 mmol/L 98-108 [facility] Comprehensive Metabolic Prof ilon 09-22-2024 Albumin [Mass/Vol] 4.3 g/dL Normal 3.5-5.0 [facility] Comment on above: Performed By: #### L 500.4100, L500.4050, L501.9910 #### [facility] [address] [place], [address] Albumin/Globulin [Mass ratio] 1.4 {ratio} Normal 0.9-2.4 [facility] Comment on above: Performed By: #### L 500.4100, L500.4050, L501.9910 #### [facility] [address] [place], [address] ALK PHOS 93 U/L Normal 40-129 [facility] Comment on above: Performed By: #### L 500.4100, L500.4050, L501.9910 #### [facility] [address] [place], [address] ALT [Catalytic activity/Vol] 17 U/L Normal <=46 [facility] Comment on above: Performed By: #### L 500.4100, L500.4050, L501.9910 #### [facility] [address] [place], [address] AST [Catalytic activity/Vol] 25 U/L Normal <=37 [facility] Comment on above: Performed By: #### L 500.4100, L500.4050, [id number] #### [facility] [address] [place], [address] Bilirubin [Mass/Vol] 0.37 mg/dL Normal 0.00-1.30 [facility] Comment on above: Performed By: #### L 500.4100, L500.4050, L501.9910 #### [facility] [address] [place], [address] BUN/CRE 18.5 RATIO Normal 10-20 [facility] Comment on above: Performed By: #### L 500.4100, L500.4050, [id number] #### [facility] [address] [place], [address] Calcium [Mass/Vol] 9.4 mg/dL Normal 7.6-11.0 [facility] Comment on above: Performed By: #### L 500.4100, L500.4050, L501.9910 #### [facility] [address] [place], [address] Chloride [Moles/Vol] 100 mmol/L Normal 98-108 [facility] Comment on above: Performed By: #### L 500.4100, L500.4050, L501.9910 #### [facility] [address] [place], [address] CO2 [Moles/Vol] 23.6 mmol/L Normal 21.0-32.0 [facility] Comment on above: Performed By: #### L 500.4100, L500.4050, L501.9910 #### [facility] [address] [place], [address] Creatinine [Mass/Vol] 0.99 mg/dL Normal 0.70-1.20 [facility] Comment on above: Performed By: #### L 500.4100, L500.4050, L501.9910 #### [facility] [address] [place], [address] GAP 12 Normal 5-15 [facility] Comment on above: Performed By: #### L 500.4100, L500.4050, L501.9910 #### [facility] [address] [place], [address] GFR/1.73 sq M.predicted among non-blacks MDRD (S/P/Bld) [Vol rate/Area] 89 mL/min/{1.73_m2} Normal >60 [facility] Comment on above: Result Comment: mL/m in/1.73m2 CKD-EPI Creatinine Equation (2020) Performed By: #### L 500.4100, L500.4050, L501.9910 #### [facility] [address] [place], [address] Globulin (S) [Mass/Vol] 3.0 g/dL Normal 2.2-4.2 [facility] Comment on above: Performed By: #### L 500.4100, L500.4050, L501.9910 #### [facility] [address] [place], [address] Glucose [Mass/Vol] 125 mg/dL High 70-99 [facility] Comment on above: Performed By: #### L 500.4100, L500.4050, L501.9910 #### [facility] [address] [place], [address] Potassium [Moles/Vol] 4.5 mmol/L Normal 3.3-5.1 [facility] Comment on above: Performed By: #### L 500.4100, L500.4050, L501.9910 #### [facility] [address] [place], [address] Sodium [Moles/Vol] 136 mmol/L Normal 133-145 [facility] Comment on above: Performed By: #### L 500.4100, L500.4050, L501.9910 #### [facility] [address] [place], [address] T PROT 7.3 g/dL Normal 5.9-8.4 [facility] Comment on above: Performed By: #### L 500.4100, L500.4050, L501.9910 #### [facility] [address] [place], [address] Urea nitrogen [Mass/Vol] 18 mg/dL Normal 4-19 [facility] Comment on above: Performed By: #### L 500.4100, L500.4050, L501.9910 #### [facility] [address] [place], [address] Glomerular filtration rate ( GFR) estimation/1.73 sq m using serum, plasma, or whole bOrdered By: Terri Owens on 09-22-2024 GFR/1.73 sq M.predicted among non-blacks MDRD (S/P/Bld) [Vol rate/Area] 89 mL/min/{1.73_m2} >60 [facility] Comment on above: mL/min/1.73m2 CKD-EP I Creatinine Equation (2020) LDL calc ser/plasOrdered By: Terri Owens on 09-22-2024 Cholesterol in LDL [Mass/Vol] 178 mg/dL [facility] Comment on above: Focgbyriyt=848-879 m g/dL & Higher Izeq=197 mg/dL or greater Laboratory - Chemistry and C hemistry - challengeOrdered By: Terri Owens on 09-22-2024 AST [Catalytic activity/Vol] 25 U/L <38 [facility] Lipid Profileon 09-22-2024 CHOL:HDL 5.34 Normal [facility] Comment on above: Performed By: #### L 500.4100, L500.4050, L501.9910 #### [facility] [address] [place], [address] Cholesterol [Mass/Vol] 269 mg/dL High <=200 [facility] Comment on above: Result Comment: Chol esterol level, Desirable <200 mg/dL Borderline high cholesterol 200-239 mg/dL High cholesterol >=240 mg/dL Recommendations of the NCEP Adult Treatment Panel for the following risk-cutoff thresholds for the [place] population. Performed By: #### L 500.4100, L500.4050, L501.9910 #### [facility] [address] [place], [address] Cholesterol in HDL [Mass/Vol] 50 mg/dL Normal [facility] Comment on above: Result Comment: Trang onal Cholesterol Education Program (NCEP) guidelines: <40 mg/dL: Low HDL-cholesterol (major risk factor for CHD) >= 60 mg/dL: High HDL-cholesterol (negative risk factor for CHD) HDL-cholesterol is affected by a number of factors, e.g. smoking, exercise, hormones, sex and age. Performed By: #### L 500.4100, L500.4050, L501.9910 #### [facility] [address] [place], [address] Cholesterol in LDL [Mass/Vol] 178 mg/dL Normal [facility] Comment on above: Result Comment: Bord iaowvz=336-905 mg/dL Higher Rrqz=242 mg/dL or greater Performed By: #### L 500.4100, L500.4050, L501.9910 #### [facility] [address] [place], [address] Cholesterol in VLDL [Mass/Vol] 41 mg/dL High 5-40 [facility] Comment on above: Performed By: #### L 500.4100, L500.4050, L501.9910 #### [facility] [address] [place], [address] Triglyceride [Mass/Vol] 205 mg/dL High [facility] Comment on above: Result Comment: The drugs N-Acetylcysteine and Metamizole may falsely depress this assay. Normal range: <150 mg/dL Borderline High: 150-199 mg/dL High: 200-499 mg/dL Very High: >500 mg/dL Performed By: #### L 500.4100, L500.4050, L501.9910 #### [facility] [address] [place], [address] PSA,Total - Annual Screenon 09-22-2024 PSA,TOT SCREEN 0.72 ng/mL Normal 0.02-4.00 [facility] Comment on above: Result Comment: This test was performed using the [employer] tPSA method. Measured values of a patient??sample can vary depending on the testing procedure used. PSA values determined on patient samples by different testing procedures cannot be used interchangeably. If there is a change in PSA assays while monitoring therapy, sequential testing should be performed to confirm baseline values. Performed By: #### L 500.4100, L500.4050, L501.9910 #### [facility] [address] [place], [address] Potassium measurement (mass/ volume)Ordered By: Terri Owens on 09-22-2024 Potassium (Unsp spec) [Mass/Vol] 4.5 mmol/L 3.3-5.1 [facility] Screening total cholesterol/ high density lipoprotein (HDL) cholesterol ratioOrdered By: Terri Owens on 09-22-2024 Cholesterol.total/Chol esterol in HDL [Mass ratio] 5.34 {ratio} [facility] Serum creatinine measurement (mass/volume)Ordered By: Terri Owens on 09-22-2024 Creatinine [Mass/Vol] 0.99 mg/dL 0.70-1.20 [facility] Serum globulin measurementOr dered By: Terri Owens on 09-22-2024 Globulin (S) [Mass/Vol] 3.0 g/dL 2.2-4.2 [facility] Serum glucose measurement (m ass/volume)Ordered By: Terri Owens on 09-22-2024 Glucose [Mass/Vol] 125 mg/dL High 70-99 [facility] Serum or plasma alanine holland otransferase (ALT) measurementOrdered By: Terri Owens 09-22-2024 ALT [Catalytic activity/Vol] 17 U/L <47 [facility] Serum or plasma albumin owen urement (mass/volume)Ordered By: Terri Owens on 09-22-2024 Albumin [Mass/Vol] 4.3 g/dL 3.5-5.0 [facility] Serum or plasma albumin/glob ulin mass ratioOrdered By: Terri Owens 09-22-2024 Albumin/Globulin [Mass ratio] 1.4 {ratio} 0.9-2.4 [facility] Serum or plasma alkaline chuy sphatase measurementOrdered By: Terri Owens 09-22-2024 ALP [Catalytic activity/Vol] 93 U/L 40-129 [facility] Serum or plasma calcium owen urement (mass/volume)Ordered By: Terri Owens on 09-22-2024 Calcium [Mass/Vol] 9.4 mg/dL 7.6-11.0 [facility] Serum or plasma cholesterol in HDL measurement (mass/volume)Ordered By: Terri Owens on 09-22-2024 Cholesterol in HDL [Mass/Vol] 50 mg/dL >40 [facility] Comment on above: National Cholesterol Education Program (NCEP) guidelines:<40 mg/dL: Low HDL-cholesterol (major risk factor for CHD)>= 60 mg/dL: High HDL-cholesterol (negative risk factor for CHD)HDL-cholesterol is affected by a number of factors, e.g. smoking, exercise, hormones, sex and age. Serum or plasma cholesterol measurement (mass/volume)Ordered By: Terri Owens on 09-22-2024 Cholesterol [Mass/Vol] 269 mg/dL High <201 [facility] Comment on above: Cholesterol level, D esirable <200 mg/dLBorderline high cholesterol 200-239 mg/dLHigh cholesterol >=240 mg/dLRecommendations of the NCEP Adult Treatment Panel for the following risk-cutoff thresholds for the [place] population. Serum or plasma urea nitroge n measurement (mass/volume)Ordered By: Terri Owens on 09-22-2024 Urea nitrogen [Mass/Vol] 18 mg/dL 4-19 [facility] Sodium levelOrdered By: Dougie Owens on 09-22-2024 Sodium [Moles/Vol] 136 mmol/L 133-145 [facility] Total proteinOrdered By: Lakisha Owens on 09-22-2024 Protein [Mass/Vol] 7.3 g/dL 5.9-8.4 [facility] Triglycerides measurementOrd ered By: Terri Owens on 09-22-2024 Triglyceride [Mass/Vol] 205 mg/dL High <199 [facility] Comment on above: The drugs N-Acetylcy steine and Metamizole may falsely depress this assay. Normal range: <150 mg/dLBorderline High: 150-199 mg/dLHigh: 200-499 mg/dLVery High: >500 mg/dL Internal Medicine Office Vis castillo 09-21-2024 Internal Medicine Office Visit [facility] [address] [place] [address] [address] [place] [address] OFFICE VISIT Date of Service: 09/21/24 MR#: [id number] Acct: [id number] Name: SHIVANI AIKEN Rep #: [id number] : 1965 Provider: Dr. Terri montanez, DO Age/Sex: 58/M Location: [facility] Status: Signed Intake Vital Signs 05/05/24 16:01 09/21/24 16:03 Height 5 ft 11 in 5 ft 11 in Weight: 229 lb BMI 31.9 BP 130/78 H 122/84 H Blood Pressure Location Lt brachial Lt brachial Position Sitting Sitting Respiration 16 16 Pulse 72 74 Pulse Source Monitor Monitor Temp 98.3 F 97.8 F Temp Source Temporal Temporal Pulse Oximetry (%) 96 97 Oxygen Delivery Method room air room air Intake Visit Reasons: YEARLY Chief Complaint: none Aquatics Director Required: No Is patient in pain?: No Allergies No Known Allergies Allergy (Verified 09/21/24 15:54) Medications ???Medication ???Instructions ???Recorded ???Confirmed ???Type cholecalciferol (vitamin D3) 10 10 mcg PO QDAY 09/21/24 09/21/24 H istory mcg (400 unit) capsule mecobalamin (vitamin B12) 500 mcg mcg PO 09/21/24 09/21/24 History chewable tablet Nurse's Note: Pt is not fasting for labs. [facility] Medical History (Updated 09/21/24 @ 16:01 by Zari Asher MA) Screening for colorectal cancer Blood in urine Lesion of skin of foot Acute maxillary sinusitis, unspecified Lesion of palate Trigger finger, right index finger Chronic right shoulder pain Physical exam, annual history surgery ganranous omentum Strangulated omentum Pneumonia Back problem Surgical History (Updated 09/21/24 @ 16:00 by Zari Asher MA) S/P shoulder replacement History of carpal tunnel release of both wrists Family History (Updated 09/21/24 @ 16:01 by Zari Asher MA) Mother Glaucoma Father Alzheimer disease Social History (Updated 09/21/24 @ 16:03 by Zari Asher MA) adopted: No household members: spouse number of children: 2 service: No current occupational status: employed current occupation: [employer] pets and animals: Yes (1) pets and animals: dog(s) sexually active: Yes do you think of yourself as: straight/heterosexual current gender identity: male Smoking Status: Never smoker alcohol intake: current alcohol intake frequency: a few times a week Alcohol type: wine substance use type: does not use caffeine: No what type of physical activity do you participate in: other details: Varies frequency: 5-6 times per week do you feel safe at home: Yes HPI HPI Chief Complaint: none Details: SHIVANI AIKEN, is a 58 M who presents to the office today for a yearly physical exam. 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 He really has no significant complaints except he knows he needs to lose some weight. ROS Const Constitutional: No body ache, chills, excessive sweating, fatigue, fever(s), frequent falls, headache(s), snoring, weakness, sleep problems or change in appetite Eyes Eyes: No blurry vision, change in vision, eye pain or Light sensitivity ENT ENT: No abnormal hearing, ear or mastoid pain, tinnitus, nasal congestion, headache(s), neck pain or sore throat Resp Respiratory: No cough, shortness of breath, snoring or wheezing Cardio Cardiology: No chest pain at rest, chest pain with exertion, excessive sweating, shortness of breath, dyspnea on exertion, lightheadedness, orthopnea or palpitations Gastro GI: No abdominal pain, change in bowel habits, constipation, cramping, diarrhea, nausea/dyspepsia or vomiting Genitourinary Male: No burning urination, painful urination, urinary incontinence or urinary frequency Musc Musculoskeletal: No abnormal gait, joint pain, back pain, limited range of motion, neck pain or numbness Skin Skin: No dry skin, redness, lesions, itchy eyes, rash or wounds Neuro Neurology: No abnormal gait, abnormal hearing, weakness, frequent falls, headache(s), memory loss or numbness Psych Psychiatric: No anxiety, No change in appetite, No depression, No memory loss and No Thoughts of harming yourself/Others Endo Endocrine: No cold intolerance, excessive sweating, fatigue, flushing, heat intolerance, increased thirst/drinking or increased hunger Aller/Imm Allergy/Immunologic: No itchy eyes, seasonal allergy symptoms, hives or wheezing Mariano/Lymp Hematologic/Lymphatic: No easy bleeding, easy bruising, enlarged lymph nodes or other Exam Const General: cooperative and no acute distress Nutritional Appearance: average body habitus Orientation: oriented x3 HENMT Ears: TM's normal bilaterally and EAC's normal Nose: nares normal, nasal mucous membranes and tur (more content not included)... Normal [facility] Urinalysis, Completeon 05-10 EPI,SQUAMOUS 0-5 SEEN Normal 0-5 [facility] Comment on above: Order Comment: RIEVRA CTOR TO SPECIFY Performed By: #### L 400.0001 #### [facility] [address] [place], [address] Mucus Ql (Urine sed) RARE Normal [facility] Comment on above: Order Comment: RIVERA CTOR TO SPECIFY Performed By: #### L 400.0001 #### [facility] [address] [place], [address] BACTERIA 0 SEEN Normal None Seen [facility] Comment on above: Order Comment: RIVERA CTOR TO SPECIFY Performed By: #### L 400.0001 #### [facility] [address] [place], [address] RBC 0 SEEN Normal 0-5 [facility] Comment on above: Order Comment: RIVERA CTOR TO SPECIFY Performed By: #### L 400.0001 #### [facility] [address] [place], [address] WBC 0 SEEN Normal 0-5 [facility] Comment on above: Order Comment: RIVERA CTOR TO SPECIFY Performed By: #### L 400.0001 #### [facility] [address] [place], [address] Internal Medicine Office Vis castillo 05-05-2024 Internal Medicine Office Visit [facility] [address] [place], [place] [address] OFFICE VISIT Date of Service: 05/05/24 MR#: [id number] Acct: [id number] Name: SHIVANI AIKEN Rep #: [id number] : 1965 Provider: Dr. Terri montanez, DO Age/Sex: 58/M Location: [facility] Status: Signed Intake Vital Signs 04/19/24 10:46 05/05/24 16:01 Height 5 ft 11 in 5 ft 11 in Weight: 232 lb BMI 32.3 BP 118/86 H 130/78 H Blood Pressure Location Lt brachial Lt brachial Position Sitting Sitting Respiration 18 16 Pulse 72 72 Pulse Source Monitor Temp 98.4 F 98.3 F Temp Source Oral Temporal Pulse Oximetry (%) 97 96 Oxygen Delivery Method room air room air Intake Visit Reasons: SURGERY CLEARANCE Chief Complaint: sgy clearance Is patient in pain?: No Allergies No Known Allergies Allergy (Verified 05/05/24 16:40) PFSH Medical History Blood in urine Lesion of skin of foot Acute maxillary sinusitis, unspecified Lesion of palate Trigger finger, right index finger Chronic right shoulder pain Physical exam, annual history surgery ganranous omentum Strangulated omentum Pneumonia Back problem Surgical History History of carpal tunnel release of both wrists Family History Mother Alzheimer disease Glaucoma Social History Smoking Status: Never smoker alcohol intake: current alcohol intake frequency: a few times a month Alcohol type: wine substance use type: does not use what type of physical activity do you participate in: other details: Varies HPI HPI Chief Complaint: sgy clearance Details: SHIVANI AIKEN, is a 58 M who presents to the office today for Surgical clearance for surgery on his right shoulder. He also has a concern about a lesion between his toes, that has been evaluated by two podiatrists ROS Const Constitutional: No body ache, excessive sweating, fatigue, fever(s), frequent falls, headache(s), snoring, weakness, weight change, sleep problems or change in appetite Eyes Eyes: No blurry vision, change in vision, eye pain or Light sensitivity ENT ENT: No abnormal hearing, ear or mastoid pain, tinnitus, nasal congestion, headache(s), neck pain or sore throat Resp Respiratory: No cough, shortness of breath, snoring or wheezing Cardio Cardiology: No chest pain at rest, chest pain with exertion, excessive sweating, shortness of breath, dyspnea on exertion, lightheadedness, orthopnea or palpitations Gastro GI: No abdominal pain, change in bowel habits, constipation, cramping, diarrhea, nausea/dyspepsia or vomiting Genitourinary Male: No burning urination, painful urination, urinary incontinence, urinary frequency or blood in urine Musc Musculoskeletal: No abnormal gait, joint pain, back pain, limited range of motion, neck pain, numbness, stiffness, tingling or Arthritis Skin Skin: No dry skin, redness, lesions, itchy eyes, rash or wounds Neuro Neurology: No abnormal gait, abnormal hearing, abnormal speech, dizziness, weakness, frequent falls, headache(s), memory loss, numbness or tingling Psych Psychiatric: No anxiety, No change in appetite, No depression, No memory loss and No Thoughts of harming yourself/Others Endo Endocrine: No cold intolerance, excessive sweating, fatigue, flushing, heat intolerance, increased thirst/drinking, increased hunger or weight change Aller/Imm Allergy/Immunologic: No itchy eyes, seasonal allergy symptoms, hives or wheezing Mariano/Lymp Hematologic/Lymphatic: No easy bleeding, easy bruising or enlarged lymph nodes Exam Const General: cooperative and no acute distress Nutritional Appearance: average body habitus Orientation: oriented x3 HENMT Ears: TM's normal bilaterally and EAC's normal Nose: nares normal, nasal mucous membranes and turbinates normal and no nasal discharge Face and sinus: sinuses nontender Mouth: oral mucosae normal Teeth and gingiva: dentition normal Throat: posterior oropharynx normal Eyes General: appearance normal, both eyes and all related structures Conjunctivae: conjunctivae normal Sclera: sclerae normal Neck Neck: normal visual inspection Neck mass: No Thyroid: thyroid normal Lymphatic: no lymphadenopathy noted Resp Effort Inspection: normal respiratory effort and symmetric chest movement Auscultation: Bilateral: Clear to Auscultation Cardio Rate: regular rate Rhythm: regular rhythm Heart Sounds: S1 normal and S2 normal GI Inspection: normal to inspection Auscultation: normal bowel sounds Palpation: no hepatosplenomegaly Musc Musculoskeletal: No joint tenderness or decreased range of motion Skin Lesions: lesion not (more content not included)... Normal [facility] Urine Cultureon 04-20-2024 [facility] Culture exhibits no growth. Normal [facility] Comment on above: Performed By: #### M 100.2200, L400.0001 #### [facility] [address] [place], [place], [address] Urgent Care Visit Reporton 1 06-20-2023 Urgent Care Visit Report [facility] [address], [address] [place], [place] [address] OFFICE VISIT Date of Service: 04/19/24 MR#: [id number] Acct: [id number] Name: SHIVANI AIKEN Rep #: [id number] : 1965 Provider: UNIQUE Coronado Age/Sex: 58/M Location: [facility] Status: Signed Intake Vital Signs 03/17/24 15:40 04/19/24 10:46 Height 5 ft 11 in 5 ft 11 in Weight: 215 lb 232 lb BMI 29.9 32.3 BP 118/78 118/86 H Blood Pressure Location Lt brachial Lt brachial Position Sitting Sitting Respiration 16 18 Pulse 86 72 Pulse Source Monitor Temp 97.6 F L 98.4 F Temp Source Oral Oral Pulse Oximetry (%) 98 97 Oxygen Delivery Method room air room air Intake Visit Reasons: Urinary tract infection Chief Complaint: ? uti Aquatics Director Required: No Is patient in pain?: Yes (urinary burning) Allergies No Known Allergies Allergy (Verified 04/19/24 10:46) Medications ???Medication ???Instructions ???Recorded ???Confirmed ???Type rosuvastatin 10 mg tablet 10 mg PO DAILY #90 tabs 05/23/23 04/19/24 Rx prednisone 10 mg tablet 10 mg PO DAILY #30 tabs 03/17/24 04/19/24 Rx ciprofloxacin HCl 500 mg tablet 500 mg PO BID #10 tabs 04/19/24 04/19/24 Rx Have you fallen in the past year?: No [facility] Medical History (Updated 04/19/24 @ 10:37 by Lara C Siders) Blood in urine Lesion of skin of foot Acute maxillary sinusitis, unspecified Lesion of palate Trigger finger, right index finger Chronic right shoulder pain Physical exam, annual history surgery ganranous omentum Strangulated omentum Pneumonia Back problem Surgical History History of carpal tunnel release of both wrists Family History Mother Alzheimer disease Glaucoma Social History Smoking Status: Never smoker alcohol intake: current alcohol intake frequency: a few times a month Alcohol type: wine substance use type: does not use what type of physical activity do you participate in: other details: Varies HPI HPI Chief Complaint: ? uti Details: SHIVANI AIKEN, is a 58 M who presents to the office today for [facility] evaluation at [facility] for approximately 24-hour history of dysuria and urinary frequency without suprapubic pressure. No complaints of fever, chills, sweats, lightheadedness/dizzin ess, nausea/vomiting, or chest pain/shortness of breath/dyspnea on exertion/back pain. No changes in color/ character of urine or stool; no urethral/ vaginal discharge. No dnkh-ccd-[id number] products taken to assist. Additionally, patient notes persistent hyperkeratotic soft tissue at site of previous tick bite to medial right third toe from last evaluation here, noting he has been to do different shearing machine tender (Dr. Heck and Dr. Samuels), stating his symptoms persist along with fissuring to the center of the wound now developing. No other associated symptoms and no alleviating/aggravatin g factors. ROS Const Constitutional: No other (As above) Exam Const General: cooperative, healthy appearing and no acute distress Orientation: alert, awake and oriented x3 Chest Chest palpation inspection: normal inspection of the chest Resp Effort Inspection: normal respiratory effort and able to speak in complete sentences Auscultation: Bilateral: Clear to Auscultation Cardio Palpation: normal PMI Rate: regular rate Rhythm: regular rhythm Heart Sounds: S1 normal, S2 normal, no gallops, no murmurs and no rubs Pulses: radial pulses present GI Inspection: normal to inspection Palpation: soft and tender nonsuprapubic (Patient describes upon self-palpation) General: No CVA tenderness Skin General: no rashes or lesions noted except approximate 1 cm diameter hyperkeratotic lesion right medial third toe with central fissuring. After inspection bacitracin and ointment and Band-Aid applied which patient tolerated well Neuro General: patient alert, patient awake and patient oriented x3 Cognition: normal cognition Speech: speech normal Psych Appearance: grossly normal Mental Status: mental status grossly normal Mood: congruent mood Affect: normal affect Speech and Movement: speech and movement normal Attitude: cooperative Diagnoses Urinary tract infection N39.0 Right medial third toe skin lesion L98.9 Assessment and Plan Assessment and Plan (1) Urinary tract infection: Status: Acute (2) Right medial third toe skin lesion: Status: Acute Plan: See POC results; urine sent to lab for UA and C/S.Antibiotic as prescribed today. Supportive measures as instructed today. Follow-up with PCP in 3 to 5 days should symptoms not improve, sooner should symptoms only worsen or any ot (more content not included)... Normal [facility] Urinalysis, Completeon 04-19 BACTERIA 1+ /hpf Normal None Seen [facility] Comment on above: Order Comment: RIVERA CTOR TO SPECIFY Performed By: #### M 100.2200, L400.0001 #### [facility] [address] [address] [place], [address] EPI,SQUAMOUS 0-5 SEEN Normal 0-5 [facility] Comment on above: Order Comment: RIVERA CTOR TO SPECIFY Performed By: #### M 100.2200, [id number] #### [facility] [address] [place], [address] RBC 5-10 SEEN Normal 0-5 [facility] Comment on above: Order Comment: RIVERA CTOR TO SPECIFY Performed By: #### M 100.2200, [id number] #### [facility] [address] [place], [address] WBC 0-5 SEEN Normal 0-5 [facility] Comment on above: Order Comment: RIVERA CTOR TO SPECIFY Performed By: #### M 100.2200, [id number] #### [facility] [address] [place], [address] Mucus Ql (Urine sed) 0 SEEN Normal [facility] Comment on above: Order Comment: COLLE CTOR TO SPECIFY Performed By: #### M 100.2200, [id number] #### [facility] [address] [place], [place], [address] Urgent Care Visit Reporton 1 Urgent Care Visit Report [facility] [address], [address] [place] [address] OFFICE VISIT Date of Service: 03/17/24 MR#: [id number] Acct: [id number] Name: SHIVANI AIKEN Rep #: [id number] : 1965 Provider: UNIQUE Coronado Age/Sex: 58/M Location: [facility] Status: Signed Intake Vital Signs 06/16/23 09:09 03/17/24 15:40 Height 5 ft 11 in 5 ft 11 in Weight: 218 lb 215 lb BMI 30.4 29.9 BP 116/80 118/78 Blood Pressure Location Lt brachial Lt brachial Position Sitting Sitting Respiration 12 16 Pulse 81 86 Pulse Source Monitor Monitor Temp 98.7 F 97.6 F L Temp Source Temporal Oral Pulse Oximetry (%) 97 98 Oxygen Delivery Method room air room air Intake Visit Reasons: ITCHY RASH/BUMP ON TOE Chief Complaint: TICK BITE FROM NOVEMBER Aquatics Director Required: No Accompanied by: Self Is patient in pain?: Yes Allergies No Known Allergies Allergy (Verified 03/17/24 15:43) Medications ???Medication ???Instructions ???Recorded ???Confirmed ???Type rosuvastatin 10 mg tablet 10 mg PO DAILY #90 tabs 05/23/23 03/17/24 Rx prednisone 10 mg tablet 10 mg PO DAILY #30 tabs 03/17/24 03/17/24 Rx Nurse's Note: pt stated he had a tick in between his toes on RT foot back in november. [facility] Medical History (Updated 03/17/24 @ 15:53 by Earnest CALHOUN, PA) Lesion of skin of foot Acute maxillary sinusitis, unspecified Lesion of palate Trigger finger, right index finger Chronic right shoulder pain Physical exam, annual history surgery ganranous omentum Strangulated omentum Pneumonia Back problem Surgical History History of carpal tunnel release of both wrists Family History Mother Alzheimer disease Glaucoma Social History Smoking Status: Never smoker alcohol intake: current alcohol intake frequency: a few times a month Alcohol type: wine substance use type: does not use what type of physical activity do you participate in: other details: Varies HPI HPI Chief Complaint: TICK BITE FROM NOVEMBER Details: SHIVANI AIKEN, is a 58 M who presents to the office today for initial evaluation of right third toe or site of tick bite was appreciated back in November 2023. Patient states upon noticing the tick he was able to remove the tick and fall without foreign body retention remaining to the same, nonetheless over the course the last several months progressively worsening pruritus and tissue swelling appreciated to the wound site though no classic erythema or, bull's-eye presentation was appreciated he so states. No complaints of fever, chills, sweats and no discharge from same. No other associated symptoms and no other alleviating/aggravatin g factors. ROS Const Constitutional: No other (As above) Exam Const General: cooperative, healthy appearing and no acute distress Orientation: alert and awake Resp Effort Inspection: normal respiratory effort and able to speak in complete sentences Cardio Rate: regular rate Pulses: radial pulses present Skin Other: Approximately 1/2 cm raised fluctuant closed lesion to the medial aspect of the right third toe without open wound or foreign body appreciated upon skin examination. Nontender to palpation of the same. Unguarded FAROM of the same toe and no other complaints at this time Neuro General: patient alert and patient awake Cognition: normal cognition Speech: speech normal Extrem General: normal to inspection (Except as described in skin exam above), full ROM and capillary refill normal Psych Appearance: grossly normal Mental Status: mental status grossly normal Mood: congruent mood Affect: normal affect Speech and Movement: speech and movement normal Attitude: cooperative Coding Level of Care Code Off vis,est,level 3 Diagnoses Lesion of skin of foot L98.9 Assessment and Plan Assessment and Plan (1) Lesion of skin of foot: Status: Acute Plan: Prednisone as prescribed today. Supportive measures as instructed today. Podiatry [facility] for reassessment and continuation of care, or report to ED sooner should symptoms worsen or any other concerns develop. Patient states acknowledging understanding all the above. This note was generated with [employer] dictation software. It may contain incorrect words, spelling, and punctuation that were not noted in checking the note before signing. Orders: Referrals Podiatry L98.9 - Disorder of the skin and subcutaneous tissue, unspecified Medications: New prednisone 4 tablets daily x3 days, then 3 tablets daily x3 days, then 2 tablets daily x3 days, then 1 tablet daily x3 days 10 mg PO (more content not included)... Normal [facility] - Microbiology an d Antimicrobial susceptibilityon 12-26-2021 SARS-CoV-2 (COVID-19) RNA RAMSES+probe Ql (Unsp spec) Not detected Not Detect [facility] Work Phone: Comment on above: Normal Reference Ran ge: Not DetectedMethod:(RT-PCR) real-time reverse transcriptase PCRLuminex LINETTE Instrument*The Food and Drug Administration (FDA) has issued an Emergency Use Authorization (EAU) for the LINETTE SARS-CoV-2 Assay for the rapid detection of the virus that causes COVID-19. This test has been validated, but the FDAs independent review of this validation is pending.*Negative results do not preclude infection and should not be used as the sole basis for treatment or patient management. Optimum specimen types and timing for peak viral levels during infections caused by SARS-CoV-2 have not been determined. Collection of multiple specimens from the same patient may be necessary to detect the virus. The possibility of a false negative result should be considered if the patient has clinical presentation or has had recent exposure. Vital Signs Date Time Vital Sign Value Performing Clinician Jayleni litana 12-22-2024 09:05-0400 Body height 180.[address] Terri Owens DO Work Phone: [facility] 12-22-2024 08:09-0400 Body height 180.[address] Terri Owens DO Work Phone: [facility] 12-22-2024 08:09-0400 Body mass index (BMI) [Ratio] 31.5 kg/m2 Dr. Terri Owens DO Work Phone: [facility] 12-22-2024 08:09-0400 Body temperature 98.5 [degF] Dr. Terri Owens DO Work Phone: [facility] 12-22-2024 08:09-0400 Body weight 102.[address] Terri Owens DO Work Phone: [facility] 12-22-2024 08:09-0400 Diastolic blood pressure 82 mm[Hg] Dr. Terri Owens DO Work Phone: [facility] 12-22-2024 08:09-0400 Heart rate 73 /min Dr. Terri Owens DO Work Phone: [facility] 12-22-2024 08:09-0400 Respiratory rate 16 /min Dr. Terri Owens DO Work Phone: [facility] 12-22-2024 08:09-0400 SaO2% (BldA) [Mass fraction] 98 % Dr. Terri Owens DO Work Phone: [facility] 12-22-2024 08:09-0400 Systolic blood pressure 120 mm[Hg] Dr. Terri Owens DO Work Phone: [facility] 09-21-2024 16:03-0400 Body height 180.[address] Terri Owens DO Work Phone: [facility] 09-21-2024 16:03-0400 Body mass index (BMI) [Ratio] 31.9 kg/m2 Dr. Terri Owens DO Work Phone: [facility] 09-21-2024 16:03-0400 Body temperature 97.8 [degF] Dr. Terri Owens DO Work Phone: [facility] 09-21-2024 16:03-0400 Body weight 103.[address] Terri Owens DO Work Phone: [facility] 09-21-2024 16:03-0400 Diastolic blood pressure 84 mm[Hg] Dr. Terri Owens DO Work Phone: [facility] 09-21-2024 16:03-0400 Heart rate 74 /min Dr. Terri Owens DO Work Phone: [facility] 09-21-2024 16:03-0400 Respiratory rate 16 /min Dr. Terri Owens DO Work Phone: [facility] 09-21-2024 16:03-0400 SaO2% (BldA) [Mass fraction] 97 % Dr. Terri Owens DO Work Phone: [facility] 09-21-2024 16:03-0400 Systolic blood pressure 122 mm[Hg] Dr. Terri Owens DO Work Phone: [facility] 12-26-2021 14:40-0400 Body height 182.[address] Terri Owens Work Phone: [facility] Work Phone: 12-26-2021 14:40-0400 Body mass index (BMI) [Ratio] 29.1 kg/m2 Dr. Terri Owens Work Phone: [facility] Work Phone: 12-26-2021 14:40-0400 Body temperature 97.8 [degF] Dr. Terri Owens Work Phone: [facility] Work Phone: 12-26-2021 14:40-0400 Body weight 97.[address] Terri Owens Work Phone: [facility] Work Phone: 12-26-2021 14:40-0400 Diastolic blood pressure 70 mm[Hg] Dr. Terri Owens Work Phone: [facility] Work Phone: 12-26-2021 14:40-0400 Heart rate 68 /min Dr. Terri Owens Work Phone: [facility] Work Phone: 12-26-2021 14:40-0400 Respiratory rate 18 /min Dr. Terri Owens Work Phone: [facility] Work Phone: 12-26-2021 14:40-0400 SaO2% (BldA) [Mass fraction] 98 % Dr. Terri Owens Work Phone: [facility] Work Phone: 12-26-2021 14:40-0400 Systolic blood pressure 110 mm[Hg] Dr. Terri Owens Work Phone: [facility] Work Phone: Encounters Encounter Date Encounter Type Care Provider Facility Start: 01-27-2025 ambulatory Terri Owens Facilit y:[facility] Start: 12-27-2024 ambulatory TERRI OWENS DO Faci lity:[facility] Start: 12-22-2024 End: 12-22-[address] Kiran Farr MD -[facility] Start: 12-22-2024 End: 12-22-[address] Terri Owens DO Work Phone: -[facility] Start: 12-22-2024 End: 12-22-2024 Patient encounter procedure Handy CALHOUN -[facility] Work Phone: Start: 12-22-2024 End: 12-22-[address] Terri Owens DO Work Phone: -[facility] Start: 09-28-2024 Encounter for genera l adult medical examination without abnormal findings Terri Owens [facility] Start: 09-22-2024 End: 09-22-[address] Terri Owens DO Work Phone: [facility] Work Phone: Start: 09-22-2024 End: 09-22-[address] Terri Cosme DO -Laboratory, [place] Start: 09-21-2024 End: 09-21-[address] Terri Cosme DO [facility] Work Phone: Start: 09-21-2024 End: 09-22-2024 ambulatory Terri Owens Facility:[facility] Start: 06-18-2024 End: 08-10-[address] COREAS MD Facility:[facility] Start: 06-04-2024 ambulatory Terri Owens Facilit y:[facility] Start: 05-10-2024 End: 05-10-2024 ambulatory Terri Owens Facility:[facility] Start: 05-05-2024 End: 05-05-2024 ambulatory Terri Owens Facility:[facility] Start: 04-19-2024 End: 04-19-2024 ambulatory Terri Owens Facility:[facility] Start: 04-19-2024 End: 04-19-2024 ambulatory Earnest CALHOUN Facility:[facility] Start: 03-17-2024 End: 03-17-2024 ambulatory Terri Owens Facility:[facility] Start: 06-10-2022 End: 09-19-2022 ambulatory NOT RECORDED PHYSICIAN Facility:[facility] Start: 06-10-2022 End: 09-19-[address] COREAS MD [facility] Start: 12-26-2021 End: 12-26-[address] Terri Owens Work Phone: [facility] Start: 11-09-2021 End: 11-09-[address] Terri Owens Work Phone: [facility] Start: 02-03-[address] Terri Owens Work Phone: [facility] Start: 04-03-2018 End: 05-26-2018 Patient encounter procedure JOSE RASMUSSEN Facility:[facility] Procedures Date Procedure Procedure Detail Performing Clinician Start: 09-22-2024 Prostate specific an tigen measurement Dr. Terri Owens DO Work Phone: Comment on above: This test was perfor med using the [employer] tPSA method. Measured values of a patient sample can vary depending on the testing procedure used. PSA values determined on patient samples by different testing procedures cannot be used interchangeably. If there is a change in PSA assays while monitoring therapy, sequential testing should be performed to confirm baseline values. Start: 11-09-2021 Plain X-ray of shoulder Dr. Terri Owens Work Phone: Stomach structure (b aldo structure) DR LANE COREAS MD Structure of eye pro per (body structure) DR LANE COREAS MD Plan of Treatment Date Care Activity Detail Author Start: 12-22-2024 X-ray of knee, four or more views Knee 4 or More Views [facility] Start: 12-22-2024 XR Knee GE 4 Views [facility] Start: 12-26-2021 Patient referral [facility] Work Phone: Patient referral [facility] Work Phone: Immunizations Immunization Date Immunization Notes Care Provider [facility] 08-11-2020 COVID-19, mRNA, LNP- S, PF, 100 mcg or 50 mcg dose; Translations: [Moderna COVID-19 Vaccine] DR LANE COREAS MD [facility] Vaccine [facility] 07-15-2020 COVID-19, mRNA, LNP- S, PF, 100 mcg or 50 mcg dose; Translations: [Moderna COVID-19 Vaccine] DR LANE COREAS MD [facility] Payers Date Payer Category Payer Private Health Insurance [id number] 2024 Self-pay [id number] 2024 Unknown [id number] 2007 Unknown [id number] 1965 Unknown [id number] 1965 Unknown [id number] 1965 Unknown [id number] 1965 Unknown [id number] Private Health Insurance [employer] [id number] Unknown SELF PAY INSURANCE [id number] Unknown [id number] Unknown [id number] Unknown [id number] Unknown [id number] Unknown [id number] Unknown [id number] Unknown [id number] Unknown [id number] Unknown [id number] Unknown [id number] Unknown [id number] Social History Date Type Detail Facility Start: [facility] Work Phone: Start: 1965 Sex Assigned At Male [facility] Start: 09-21-2024 End: 12-22-2024 Tobacco smoking status Never smoked tobacco (finding) [facility] Gender Identity Identifies as ma le gender (finding) [facility] Sexual Orientation Heterosexual (finding) [facility] Evaluation note 09-21-2024 Note Date & Type Note Facility 09-21-2024 Evaluation note Diagnosis Onset Date Resolution Physical exam, annual acute September 21, 2024 3:51pm [facility] Work Phone: Evaluation + Plan note Note Date & Type Note Facility Evaluation + Plan note No data available for this section [facility] Evaluation note Note Date & Type Note Facility Evaluation note Diagnosis Onset Date Acromioclavicular arthrosis acute Impingement syndrome, shoulder, left acute Left shoulder pain acute Lesion of palate acute URI (upper respiratory infection) noneactive Body aches noneactive [facility] Work Phone: Hospital Discharge instructions Note Date & Type Note Facility Hospital Discharge instructions No data available for this section [facility] Discharge instructions Note Date & Type Note Facility Hospital Discharge instructions Ambulatory OrdersPhysical Therapy Referral Location: None [facility] Work Phone: Progress note Note Date & Type Note Facility Progress note No data available for this section [facility] Reason for referral (narrative) Note Date & Type Note Facility Reason for referral (narrative) No reason for referral information available [facility] Work Phone: Summary Purpose Family History No Family History Records Found Relationship Condition Age at Onset Recorded Date/T vaishnavi mother Alzheimer's disease Unknown Glaucoma Unknown Relationship Condition Age at Onset Recorded Date/T vaishnavi mother Glaucoma Unknown father Alzheimer's disease Unknown Advance Directives No Advanced Directives Records FoundNo Advanced Directives Records FoundNo Advanced Directives Records FoundNo Advanced Directives Records Found Chief Complaint and Reason for Visit Chief Complaint Admit Date YEARLY September 21, 2024 3:51pm BURSA IN L KNEE December 22, 2024 8:0 0am Reason for Visit Admit Date Physical exam, annual September 21, 2024 3:51 pm Chief Complaint BL SHOULDER XRAY GROWTHT IN MOUTH, SORE THROAT Reason for Visit Acromioclavicular ar throsis Impingement syndrome, shoulder, left Left shoulder pain Lesion of palate URI (upper respiratory infection) Body aches Chief Complaint Admit Date YEARLY September 21, 2024 3:51pm Chief Complaint Admit Date YEARLY September 21, 2024 3:51pm BURSA IN L KNEE December 22, 2024 8:0 0am XRAY December 22, 2024 9:0 6am Additional Source Comments (unrecognized sect ion and content) No Status Records FoundNo Status Records FoundNo Status Records FoundNo Status Records Found INFORMATION SOURCE (unrecogn ized section and content) DATE CREATED AUTHOR 05/27/2018 [facility] ([place]) DATE CREATED AUTHOR AUTHOR'S ORGANIZ ATION 09/21/2022 [facility] DATE CREATED AUTHOR AUTHOR'S ORGANIZ ATION 01/08/2025 [facility] DATE CREATED AUTHOR AUTHOR'S ORGANIZ ATION 01/25/2025 [facility] Goals (unrecognized section and content) Goals may be documented in a n alternate section No data available for this sectionGoals may be documented in an alternate sectionGoals may be documented in an alternate sectionGoals may be documented in an alternate section Patient Care team informatio n (unrecognized section and content) Team Status: Active Member Role Status Dates Dr. Terri Owens DO Family Provider Active Dr. Terri Owens DO Primary Care Provider Active Team Status: Inactive Member Role Status Dates Dr. Terri Owens DO Primary Care Provider Active Start: September 21, 2024 End: September 21, 2024 Dr. Terri Owens DO Attending Provider Active Start: September 21, 2024 End: September 21, 2024 Dr. Terri Owens DO Referring Provider Active Start: September 21, 2024 End: September 21, 2024 Team Status: Inactive Member Role Status Dates Dr. Terri Owens DO Primary Care Provider Active Start: September 22, 2024 End: September 22, 2024 Dr. Terri Owens DO Attending Provider Active Start: September 22, 2024 End: September 22, 2024 Dr. Terri Owens DO Referring Provider Active Start: September 22, 2024 End: September 22, 2024 Team Status: Active Member Role/Relationship Status Dates Dr. Terri Owens DO Family Provider Active Dr. Terri Owens DO Primary Care Provider Active Team Status: Inactive Member Role/Relationship Status Dates Dr. Terri Owens DO Primary Care Provider Active Start: September 21, 2024 End: September 21, 2024 Dr. Terri Owens DO Attending Provider Active Start: September 21, 2024 End: September 21, 2024 Dr. Terri Owens DO Referring Provider Active Start: September 21, 2024 End: September 21, 2024 Team Status: Inactive Member Role/Relationship Status Dates Dr. Terri Owens DO Primary Care Provider Active Start: September 22, 2024 End: September 22, 2024 Dr. Terri Owens DO Attending Provider Active Start: September 22, 2024 End: September 22, 2024 Dr. Terri Owens DO Referring Provider Active Start: September 22, 2024 End: September 22, 2024 Team Status: Inactive Member Role/Relationship Status Dates Dr. Terri Owens DO Primary Care Provider Active Start: December 22, 2024 End: December 22, 2024 Dr. Terri Owens DO Referring Provider Active Start: December 22, 2024 End: December 22, 2024 UNIQUE Mullen Attending Provider Active St art: December 22, 2024 End: December 22, 2024 Team Status: Inactive Member Role/Relationship Status Dates Dr. Terri Owens DO Primary Care Provider Active Start: December 22, 2024 End: December 22, 2024 Dr. Kiran Farr MD Attending Provider Active S tart: December 22, 2024 End: December 22, 2024 FOR RECORDS PERTAINING TO PATIENTS WHO ARE OR HAVE BEEN ENROLLED IN A CHEMICAL DEPENDENCY/SUBSTANCEABUSE PROGRAM, SOME INFORMATION MAY BE OMITTED. This clinical summary was aggregated from multiple sources. Caution should be exercised in using it in the provision of clinical care. This summary normalizes information from multiple sources, and as a consequence, information in this document may materially change the coding, format and clinical context of patient data. In addition, data may be omitted in some cases. CLINICAL DECISIONS SHOULD BE BASED ON THE PRIMARY CLINICAL RECORDS. [employer] provides no warranty or guarantee of the accuracy or completeness of information in this document.
== END | disposition home or self-care (01) ==
PROVIDERS: PCP Family Medicine; Referring Provider Physician Assistant; Visit Provider Physician Assistant
DX: M25.362 Other instability, left knee (principal); M76.892 Other specified enthesopathies of left lower limb, excluding foot
CPT/HCPCS: 73721

== ENCOUNTER → 2025-03-17 | Outpatient (CLI) | payer OTHER, SELFPAY ==
[2025-03-17 10:02] LABS: Synovial Fld Mononuclear WBC # 0.087 10^3/ul; Synovial Fld Mononuclear WBC % 87.0 %; Synovial Fld Polynuclear WBC # 0.013 10^3/uL; Synovial Fld Polynuclear WBC % 13.0 %; Total Cell Count Synovial Fld 0.1050 10^3/uL (0.000-0.000); WBC / Synovial Fluid 0.1000 10^3/uL (0.000-0.002)
[2025-03-17 10:16] LABS: AUTO B FLUID DILUENT BKGD CT WBC <0.1 RBC <0.01 (W<.1,R<.01); Appearance /Synovial Fluid Cloudy (CLEAR); CRYSTALS, BODY FLUID CALCIUM PYROPHOS; Color / Synovial Fluid Yellow (Pale Yellow); RBC /Synovial Fluid 0.003 10^6/uL (0); Source / Synovial Fluid LEFT KNEE; Source- Body Fluid SYNOVIAL
[2025-03-17 10:38] LABS: Monocyte /Synovial Fluid 55 %; Other Cell /Synovial Fluid 12 %
[2025-03-17 10:41] LABS: Body Fluid QC Type(s) BF1,BF2
== END | disposition home or self-care (01) ==
LOC: LAB 09:20 → LABSPEC 09:21
PROVIDERS: PCP Family Medicine; Referring Provider Orthopaedic Surgery; Visit Provider Orthopaedic Surgery
DX: M25.462 Effusion, left knee (principal); M25.562 Pain in left knee; S83.242D Other tear of medial meniscus, current injury, left knee, subsequent encounter
CPT/HCPCS: 87070; 87075; 87205; 89050; 89051; 89060